=== PATIENT | female | born 1960 | race Caucasian/White ===

== ENCOUNTER 2021-08-10 22:57 | Emergency (ER) | payer BC ==
[2021-08-11] MEDS ORDERED: Ondansetron 4 MG/2 ML SDV IVPUSH ONE ×2 (00:05→02:31)
[2021-08-11] MEDS ORDERED: Sodium Chloride 0.9% 1,000 ML IV ONE (00:05)
[2021-08-11 00:09] VITALS: BP 153/94; PULSE 84
[2021-08-11] MEDS ORDERED: HYDROmorphone 0.5 MG/0.5 ML Syringe IVPUSH ONE ×2 (00:13→01:04)
[2021-08-11 00:30] LABS: ANION GAP 10.8 mEq/L (7-13); CHLORIDE,CL 104 mmol/L (98-107); SODIUM,NA 141 mmol/L (136-145)
[2021-08-11 00:54] LABS: CORONAVIRUS COVID-19 NAA NEGATIVE (NEGATIVE)
[2021-08-11] MEDS ORDERED: Iopamidol 612 MG/ML 100 ML Bottle IVPUSH ONE (01:01)
== END 2021-08-11 02:45 | disposition home or self-care (01) ==
LOC: DL.ED 22:57
DX: K52.9 Noninfective gastroenteritis and colitis, unspecified (principal); I10 Essential (primary) hypertension; Z79.899 Other long term (current) drug therapy; Z20.822 Contact with and (suspected) exposure to COVID-19
CPT/HCPCS: 0240U; 36415; 74177; 80053; 81001; 82150; 83605; 83690; 85025; 87040; 96374; 96375; 96376; 99284; J1170; J2405; J7030; Q9967; 99285

== ENCOUNTER 2021-10-30 15:14 | Emergency (ER) | payer BC ==
[2021-10-30 15:28] VITALS: PULSE 90
[2021-10-30] MEDS ORDERED: Aspirin 81 MG Tab.Chew PO ONE (15:28)
[2021-10-30] MEDS ORDERED: Nitroglycerin 0.4 MG Tab.SL SL ONE (15:40)
[2021-10-30] MEDS ORDERED: Nitroglycerin 0.4 MG Tab.SL ONE (15:42)
[2021-10-30 15:46] VITALS: BP 150/74
[2021-10-30 16:31] LABS: CHLORIDE,CL 104 mmol/L (98-107); SODIUM,NA 143 mmol/L (136-145)
[2021-10-30] MEDS ORDERED: Acetaminophen 500 MG Tab PO ONE (17:01)
[2021-10-30] MEDS ORDERED: rOPINIRole 0.25 MG Tab PO ONE (17:01)
[2021-10-30] MEDS ORDERED: Potassium Chloride 10 MEQ Tab.ER PO ONE (17:08)
== END 2021-10-30 19:41 | disposition home or self-care (01) ==
LOC: DL.ED 15:14
DX: R07.89 Other chest pain (principal); E87.6 Hypokalemia; I10 Essential (primary) hypertension; Z79.899 Other long term (current) drug therapy
CPT/HCPCS: 36415; 71045; 80053; 82150; 83690; 83880; 84443; 84484; 85025; 93005; 93010; 99282; 99285; A9270

== ENCOUNTER 2024-04-23 15:14 | Emergency (ER) | payer BC, MEDICARE ==
[2024-04-23 15:50] VITALS: BP 144/88; PULSE 97
[2024-04-23] MEDS: Dexamethasone 4 MG/ML SDV IM ONE (16:09)
[2024-04-23] MEDS: Ketorolac 30 MG/ML SDV IM ONE (16:09)
== END 2024-04-23 16:28 | disposition home or self-care (01) ==
LOC: DL.ED 15:14
DX: K08.89 Other specified disorders of teeth and supporting structures (principal); R05.1 Acute cough; I10 Essential (primary) hypertension; Z96.653 Presence of artificial knee joint, bilateral; Z79.2 Long term (current) use of antibiotics; Z79.899 Other long term (current) drug therapy
CPT/HCPCS: 96372; 99282; J1100; J1885

== ENCOUNTER 2024-07-16 10:53 | Emergency (ER) | payer MEDICARE, OTHER ==
[2024-07-16] MEDS ORDERED: Sodium Chloride 0.9% 10 ML Syringe FLUSH PRN (11:09)
[2024-07-16] MEDS: Aspirin 81 MG Tab.Chew ONE (11:20)
[2024-07-16] MEDS: Nitroglycerin 0.4 MG Tab.SL SL ONE ×3 (11:20→11:31)
[2024-07-16] MEDS: Aspirin 81 MG Tab.Chew PO ONE (11:21)
[2024-07-16 11:24] LABS: BASOPHILS PERCENT AUTO 1.2 % (0.0-1.0); EOSINOPHILS PERCENT AUTO 3.4 % (1.0-3.0); HEMATOCRIT 41.1 % (37.0-47.0); LYMPHOCYTES PERCENT AUTO 38.7 % (20.5-50.1); MEAN CORPUSCULAR HEMOGLOBIN 28.4 pg (27.0-34.0); MEAN CORPUSCULAR HGB CONC 31.6 g/dL (33.0-35.0); MEAN CORPUSCULAR VOLUME 89.9 fL (80-100); NEUTROPHILS PERCENT AUTO 49.7 % (42.2-75.2); PLATELET COUNT,PLT 288 10^3/uL (150-450); RED BLOOD CELL COUNT 4.57 10^6/uL (4.2-5.4); WHITE BLOOD CELL COUNT,WBC 6.7 10^3/uL (5.0-10.0)
[2024-07-16] MEDS: Sodium Chloride 0.9% 1,000 ML IV ONE (11:25)
[2024-07-16 11:40] LABS: AMYLASE 41 U/L (25-115); LIPASE 39 U/L (16-77)
[2024-07-16 11:41] LABS: INR 0.9 (0.9-1.2); PROTHROMBIN TIME 9.4 SEC (9.0-12.0)
[2024-07-16 11:47] LABS: ALANINE AMINOTRANSFERASE,ALT 26 U/L (14-59); ALBUMIN 3.8 g/dL (3.4-5.0); ALKALINE PHOSPHATASE 97 U/L (46-116); ANION GAP 10.9 mEq/L (7-13); ASPARTATE AMNIOTRANSFERASE,AST 22 U/L (15-37); BILIRUBIN TOTAL 0.5 mg/dL (0.2-1.0); BLOOD UREA NITROGEN,BUN 19 mg/dL (7-18); BUN/CREATININE RATIO 20.7 (No establ ref range); CALCIUM 9.3 mg/dL (8.5-10.1); CARBON DIOXIDE,CO2 31 mmol/L (21-32); CHLORIDE,CL 103 mmol/L (98-107); CREATININE 0.92 mg/dL (0.55-1.02); EST CRCL DRUG DOSING (CG) 52.64 mL/min; GLUCOSE RANDOM 103 mg/dL (70-99); MAGNESIUM 2.5 mg/dL (1.8-2.4); POTASSIUM,K 3.9 mmol/L (3.5-5.1); PROTEIN TOTAL,TP 7.6 g/dL (6.4-8.2); SODIUM,NA 141 mmol/L (136-145)
[2024-07-16 11:48] LABS: C-REACTIVE PROTEIN < 0.50 ng/dL (<=0.50); ESTIMATED GFR 69 mL/min (>=60)
[2024-07-16 13:52] VITALS: BP 105/66; PULSE 73
== END 2024-07-16 13:52 | disposition home or self-care (01) ==
LOC: DL.ED 10:53
DX: R07.2 Precordial pain (principal); I10 Essential (primary) hypertension; Z96.659 Presence of unspecified artificial knee joint; Z88.0 Allergy status to penicillin; Z79.899 Other long term (current) drug therapy
CPT/HCPCS: 36415; 71046; 80053; 82150; 83690; 83735; 84484; 85025; 85610; 86140; 93005; 99285; A9270; J7030

== ENCOUNTER 2024-07-28 05:27 | Day surgery (SDC) | payer MEDICARE ==
[2024-07-28] MEDS: Sodium Chloride 0.9% 500 ML IV SCH (05:49)
[2024-07-28] MEDS ORDERED: Sodium Chloride 0.9% 1,000 ML IV SCH (06:00)
[2024-07-28] MEDS ORDERED: Midazolam 1 MG/ML 2 ML SDV ONE (06:07)
[2024-07-28] MEDS ORDERED: fentaNYL 100 MCG/2 ML SDV ONE (06:07)
[2024-07-28] MEDS: fentaNYL 100 MCG/2 ML SDV IV ONE ×2 (06:16→06:17)
[2024-07-28] MEDS: Midazolam 1 MG/ML 2 ML SDV IV ONE ×2 (06:18)
[2024-07-28 08:18] VITALS: BP 114/69; PULSE 80
== END 2024-07-28 08:30 | disposition home or self-care (01) ==
LOC: DL.ENDO 05:27
PROVIDERS: ATTEND Internal Medicine Gastroenterology
DX: K29.50 Unspecified chronic gastritis without bleeding (principal); B96.81 Helicobacter pylori [H. pylori] as the cause of diseases classified elsewhere; I10 Essential (primary) hypertension; E78.00 Pure hypercholesterolemia, unspecified; F32.A Depression, unspecified; Z79.899 Other long term (current) drug therapy
CPT/HCPCS: 88305; 88342; J2250; J3010; J7040